=== PATIENT | female | born 1960 | race Caucasian/White ===

== ENCOUNTER 2017-06-12 11:59 | Observation (INO) | payer BC, OTHER ==
[2017-06-12] MEDS ORDERED: SODIUM CHLORIDE 0.9% 1,000 ML IV STA (12:04)
[2017-06-12 12:47] LABS: Basophils % (A) 0 %; CH 30.9; CHCM 34.5; Eosinophils % (A) 0 %; HCT 34.1 % (34.0-46.0); HDW 2.98; HGB 11.5 gm/dL (11.4-16.0); Luc # (Auto) 0.05; Luc % (Auto) 1; Lymphocytes # (A) 0.7 k/uL (1.0-4.8); Lymphocytes % (A) 8 %; MCH 30.4 pg (25.0-35.0); MCHC 33.8 g/dL (31.0-37.0); Monocytes # (A) 0.2 k/uL (0-1.0); Monocytes % (A) 2 %; Neutrophils # (A) 8.3 k/uL (1.3-7.7); Neutrophils % (A) 89 %; RBC 3.79 m/uL (3.80-5.40); RDW 12.8 % (11.5-15.5); WBC 9.3 k/uL (3.8-10.6); WBC (Perox) 9.29
[2017-06-12 12:54] LABS: ALT 34 U/L (9-52); AST 28 U/L (14-36); Alkaline Phosphatase 51 U/L (38-126); Anion Gap 6 mmol/L; Blood Urea Nitrogen 14 mg/dL (7-17); Carbon Dioxide 30 mmol/L (22-30); Chloride 101 mmol/L (98-107); Glucose 127 mg/dL (74-99); Magnesium 1.7 mg/dL (1.6-2.3); Non-African American GFR(MDRD) >60 (>60 ml/min/1.73 sqM); Potassium 4.1 mmol/L (3.5-5.1); Sodium 137 mmol/L (137-145); Total Bilirubin 0.2 mg/dL (0.2-1.3); Total Protein 6.1 g/dL (6.3-8.2)
--- NOTE | 2017-06-12 12:57 | XR ---
EXAMINATION TYPE: XR chest 2V DATE OF EXAM: 06/12/2017 COMPARISON: NONE HISTORY: Shortness of breath TECHNIQUE: Frontal and lateral views of the chest are obtained. FINDINGS: Scattered senescent parenchymal changes noted. Hyperinflation compatible with COPD. No evidence for infiltrate. No evidence for atelectasis. Heart size is stable. Mediastinal structures are stable and grossly unremarkable. No evidence for hilar prominence. Degenerative changes dorsal spine. IMPRESSION: 1. No evidence for acute pulmonary disease.
[2017-06-12 13:02] LABS: INR 1.1 (<1.2); Prothrombin Time 11.3 sec (9.0-12.0)
[2017-06-12 13:08] LABS: Creatine Kinase 141 U/L (30-135)
[2017-06-12] MEDS ORDERED: RX INFO: IV CONTRAST WAS GIVEN 1 EACH MISC MISCELLANE PRN (13:10)
[2017-06-12 13:20] LABS: Troponin I <0.012 ng/mL (0.000-0.034)
[2017-06-12 13:24] LABS: Creatine Kinase MB 3.1 ng/mL (0.0-2.4)
--- NOTE | 2017-06-12 13:53 | CT ---
EXAMINATION TYPE: CT angio chest DATE OF EXAM: 06/12/2017 COMPARISON: NONE HISTORY: A Fib CT DLP: 501.9 mGycm CONTRAST: CT chest with contrast and 3D reconstruction with MIP imaging is performed with IV Contrast, patient injected with 100 mL of Omnipaque 350. Contrast-enhanced CT of the chest was performed through the course of the pulmonary arteries with vic g and mediastinal window settings submitted. 3D reconstruction with MIP imaging was also performed. PULMONARY ARTERIES: The pulmonary arteries and their major tributaries are patent. I do not see jayda dence for sizable filling defect to suggest pulmonary embolic process. LUNGS: The lungs are clear and free of infiltrate. No evidence for atelectasis. No pulmonary nodule or mass is detected. No pleural effusion. MEDIASTINUM: Thoracic aorta is of normal caliber . The heart is not enlarged. No evidence for media stinal mass. No mediastinal lymph nodes greater than 1cm. HILAR STRUCTURES: No evidence for mass. No hilar lymph nodes greater than 1 cm. UPPER ABDOMEN: No significant abnormality is seen. IMPRESSION: 1. No evidence for Pulmonary embolism at this time.
[2017-06-12] MEDS ORDERED: METOPROLOL TARTRATE 25 MG TAB PO STA (13:54)
[2017-06-12] MEDS ORDERED: ACETAMINOPHEN TAB 325 MG TAB PO PRN (14:39)
[2017-06-12] MEDS ORDERED: MORPHINE SULFATE 4 MG/ML SYRINGE IV PRN (14:39)
[2017-06-12] MEDS ORDERED: NALOXONE 0.4 MG/ML 1 ML VIAL IV PRN (14:39)
[2017-06-12] MEDS: MORPHINE SULFATE 4 MG/ML SYRINGE IVP STA ×2 (14:45→14:51)
[2017-06-12] MEDS ORDERED: HYDROmorphone 1 MG/ML 1 ML SYRINGE IVP STA (14:50)
--- NOTE | 2017-06-12 14:51 | ED ---
General Adult HPI - General Chief complaint: Arrhythmia/Palpitations Stated complaint: AFib Time Seen by Provider: 06/12/17 12:04 Source: patient, family, EMS, RN notes reviewed Mode of arrival: EMS Limitations: no limitations - History of Present Illness Initial comments: 57 female presents from same day surgery clinic with new-onset atrial fibrillation. Patient does have past history of hypertension, COPD, and hypothyroidism. She was noted to be in sinus rhythm prior to her procedure. Throughout the procedure and postoperatively she did have atrial fibrillation with a rapid ventricular response at a rate of around 130. This was discussed with the anesthesiologist. Patient denied chest pain or shortness of breath. No history CVA, no history of peripheral vascular disease or diabetes. Patient denies any complaints at this time. - Related Data Home Medications Medication Instructions Recorded Confirmed Hydrochlorothiazide 25 mg PO DAILY 06/12/17 06/12/17 Levothyroxine Sodium [Synthroid] 100 mcg PO DAILY 06/12/17 06/12/17 Lisinopril [Zestril] 10 mg PO DAILY 06/12/17 06/12/17 Omeprazole 20 mg PO BID 06/12/17 06/12/17 Sertraline [Zoloft] 100 mg PO DAILY 06/12/17 06/12/17 buPROPion HCL [Wellbutrin XL] 300 mg PO DAILY 06/12/17 06/12/17 Allergies Allergy/AdvReac Type Severity Reaction Status Date / Time No Known Allergies Allergy Verified 06/12/17 12:19 Review of Systems ROS Statement: Those systems with pertinent positive or pertinent negative responses have been documented in the HPI. ROS Other: All systems not noted in ROS Statement are negative. Past Medical History Past Medical History: Hypertension History of Any Multi-Drug Resistant Organisms: None Reported Past Surgical History: Appendectomy, Bladder Surgery, Cholecystectomy, Tubal Ligation, Uterine Ablation Past Psychological History: Depression Smoking Status: Current some day smoker Past Alcohol Use History: Rare Past Drug Use History: None Reported General Exam Limitations: no limitations General appearance: alert, in no apparent distress Head exam: Present: atraumatic, normocephalic Eye exam: Present: normal appearance, PERRL ENT exam: Present: normal exam, mucous membranes dry Neck exam: Present: normal inspection. Absent: tenderness, meningismus Respiratory exam: Present: normal lung sounds bilaterally. Absent: respiratory distress Cardiovascular Exam: Present: tachycardia, irregular rhythm GI/Abdominal exam: Present: soft. Absent: distended, tenderness Extremities exam: Present: normal inspection, normal capillary refill. Absent: pedal edema Neurological exam: Present: alert, oriented X3, CN II-XII intact. Absent: motor sensory deficit Psychiatric exam: Present: normal affect, normal mood Skin exam: Present: warm, dry. Absent: cyanosis, diaphoretic Course Vital Signs 06/12/17 06/12/17 12:03 12:40 Temperature 97.4 F L Pulse Rate 102 H Pulse Rate [ 110 H Left Pulse Oximetery] Respiratory 18 Rate Blood Pressure 124/71 O2 Sat by Pulse 94 L Oximetry EKG Findings - EKG Comments: EKG Findings:: EKG shows atrial fibrillation with rapid ventricular response, ventricular rate of 103, QRS duration 88, QTC 440, there is no ST segment elevation or depression. Medical Decision Making - Medical Decision Making 57 yo female presenting with new onset atrial fibrillation. Patient has no complaints, evaluation. She is dehydrated likely secondary to decreased by mouth intake prior to her outpatient surgery. EKG shows atrial fibrillation with RVR, ventricular rate of 101, no ST segment elevation or depression. She denies chest pain. Laboratory studies reveal normal electrolytes, potassium 4.1 , magnesium 1.7, cardiac enzymes are initially negative. D-dimer is positive in the setting of elevated heart rate, CT angiography is obtained which is negative for pulmonary embolism. Chest x-ray shows no acute process. Patient is given metoprolol by mouth and started on metoprolol 25 mg twice a day. Case is discussed with cardiology on-call. They do agree with this plan. Patient will be admitted for further evaluation and treatment. [id number] is 2, for female and history of hypertension. Patient did just have recent operation with sling placement. Will hold on anticoagulation at this time. Diagnosis: New-onset atrial fibrillation, with rapid ventricular response. - Lab Data Result diagrams: 06/12/17 12:30 06/12/17 12:30 Lab Results 06/12/17 06/12/17 06/12/17 Range/Units 12:30 12:30 12:30 WBC 9.3 (3.8-10.6) k/uL RBC 3.79 L (3.80-5.40) m/uL Hgb 11.5 (11.4-16.0) gm/dL Hct 34.1 (34.0-46.0) % MCV 90.0 (80.0-100.0) fL MCH 30.4 (25.0-35.0) pg MCHC 33.8 (31.0-37.0) g/dL RDW 12.8 (11.5-15.5) % Plt Count 210 (150-450) k/uL Neutrophils % 89 % Lymphocytes % 8 % Monocytes % 2 % Eosinophils % 0 % Basophils % 0 % Neutrophils # 8.3 H (1.3-7.7) k/uL Lymphocytes # 0.7 L (1.0-4.8) k/uL Monocytes # 0.2 (0-1.0) k/uL Eosinophils # 0.0 (0-0.7) k/uL Basophils # 0.0 (0-0.2) k/uL PT (9.0-12.0) sec INR (<1.2) APTT (22.0-30.0) sec D-Dimer (<0.60) mg/L FEU Sodium 137 (137-145) mmol/L Potassium 4.1 (3.5-5.1) mmol/L Chloride 101 (98-107) mmol/L Carbon Dioxide 30 (22-30) mmol/L Anion Gap 6 mmol/L BUN 14 (7-17) mg/dL Creatinine 0.62 (0.52-1.04) mg/dL Est GFR (MDRD) Af Amer >60 (>60 ml/min/1.73 sqM) Est GFR (MDRD) Non-Af >60 (>60 ml/min/1.73 sqM) Glucose 127 H (74-99) mg/dL Calcium 8.0 L (8.4-10.2) mg/dL Magnesium 1.7 (1.6-2.3) mg/dL Total Bilirubin 0.2 (0.2-1.3) mg/dL AST 28 (14-36) U/L ALT 34 (9-52) U/L Alkaline Phosphatase 51 (38-126) U/L Total Creatine Kinase 141 H (30-135) U/L CK-MB (CK-2) 3.1 H* (0.0-2.4) ng/mL CK-MB (CK-2) Rel Index 2.2 Troponin I <0.012 (0.000-0.034) ng/mL Total Protein 6.1 L (6.3-8.2) g/dL Albumin 3.5 (3.5-5.0) g/dL 06/12/17 Range/Units 12:30 WBC (3.8-10.6) k/uL RBC (3.80-5.40) m/uL Hgb (11.4-16.0) gm/dL Hct (34.0-46.0) % MCV (80.0-100.0) fL MCH (25.0-35.0) pg MCHC (31.0-37.0) g/dL RDW (11.5-15.5) % Plt Count (150-450) k/uL Neutrophils % % Lymphocytes % % Monocytes % % Eosinophils % % Basophils % % Neutrophils # (1.3-7.7) k/uL Lymphocytes # (1.0-4.8) k/uL Monocytes # (0-1.0) k/uL Eosinophils # (0-0.7) k/uL Basophils # (0-0.2) k/uL PT 11.3 (9.0-12.0) sec INR 1.1 (<1.2) APTT 22.0 (22.0-30.0) sec D-Dimer 2.59 H (<0.60) mg/L FEU Sodium (137-145) mmol/L Potassium (3.5-5.1) mmol/L Chloride (98-107) mmol/L Carbon Dioxide (22-30) mmol/L Anion Gap mmol/L BUN (7-17) mg/dL Creatinine (0.52-1.04) mg/dL Est GFR (MDRD) Af Amer (>60 ml/min/1.73 sqM) Est GFR (MDRD) Non-Af (>60 ml/min/1.73 sqM) Glucose (74-99) mg/dL Calcium (8.4-10.2) mg/dL Magnesium (1.6-2.3) mg/dL Total Bilirubin (0.2-1.3) mg/dL AST (14-36) U/L ALT (9-52) U/L Alkaline Phosphatase (38-126) U/L Total Creatine Kinase (30-135) U/L CK-MB (CK-2) (0.0-2.4) ng/mL CK-MB (CK-2) Rel Index Troponin I (0.000-0.034) ng/mL Total Protein (6.3-8.2) g/dL Albumin (3.5-5.0) g/dL Disposition Clinical Impression: Atrial fibrillation, Tachycardia Disposition: ADMITTED IP TO THIS [facility] Condition: Stable Referrals: Nonstaff,Physician [Primary Care Provider] - 1-2 days Decision to Admit Reason: Admit from EC Decision Date: 06/12/17 Decision Time: 14:05
[2017-06-12] MEDS: SODIUM CHLORIDE 0.9% 1,000 ML IV SCH (14:59)
[2017-06-12 17:04] VITALS: BMI 34.9
[2017-06-12 18:58] LABS: Creatine Kinase 182 U/L (30-135)
[2017-06-12 19:12] LABS: Troponin I <0.012 ng/mL (0.000-0.034)
[2017-06-12 19:20] LABS: Creatine Kinase MB 3.2 ng/mL (0.0-2.4)
--- NOTE | 2017-06-12 20:04 | P.HPIM ---
History of Present Illness H&P Date: 06/12/17 Chief Complaint: new onset Afib 57-year-old female with past medical history of hypertension, hepatitis C status post treatment, history of bronchitis, hypothyroidism, and depression. Patient was in same day surgery having urological procedure with urethral sling. She was noticed prior to surgery to have normal sinus rhythm however is documented that during and after surgery she was persistently in A. fib at times with rapid ventricular response. Patient denies any symptoms of chest pain trouble breathing dizziness lightheadedness palpitations. Reports that she had full evaluation back in November and was told that everything is okay. She denies any history of heart attack or heart failure or any stroke, denies any history of peripheral vascular disease or diabetes. She is currently eager to go home and feels upset about staying in the hospital. Patient was sent to the emergency department from same day surgery for further evaluation d-dimer was found to be positive and CT angiogram chest was performed which was negative for acute pulmonary embolism. Cardiac enzymes are unremarkable patient was admitted for further evaluation by cardiology. Patient's reports history of hypothyroidism which is controlled with levothyroxine however she does mention that her mom has been recently diagnosed with A. fib 5 years ago. Otherwise he only complains of lower abdominal pressure and reported that her urologist told her that's expected postsurgery and she is requesting Dilaudid is helping with her pain. Review of Systems Constitutional: Patient reports no fever, no chills, no night sweating, no significant weight changes Eyes: Patient reports no visual changes, no eye pain ENT: Patient reports no ear pain, no rhinorrhea, no sore throat Cardiovascular: Patient reports no chest pain, no exertional dyspnea, no peripheral leg edema, no orthopnea, no paroxysmal nocturnal dyspnea, no palpitations Respiratory:Patient reports no cough, no wheezing, no shortness of breath Gastrointestinal: Patient reports no diarrhea, no constipation, no nausea no vomiting, no abdominal pain Genitourinary: Patient reports no dysuria, no hematuria, no genital lesions. reports urinary stress incontinence Musculoskeletal: Patient reports no muscle pain, no joint pain Psychiatric: Patient reports no changes in mood or memory, no suicidal ideation , no anxiety Endocrine: Patient reports no heat intolerance, no cold intolerance, no excessive thirst, no polyuria Neurological: Patient reports no focal neurologic deficits, no weakness, no numbness, no tingling Hem/Lymphatic: Patient reports no bleeding tendency, no bruising, no swollen lymph glands Allergic/Immun: Patient reports no recent allergic reactions Skin: Patient reports no rashes, no pruritis, no ulcers Past Medical History Past Medical History: Hypertension, Thyroid Disorder Additional Past Medical History / Comment(s): Hep C s/p treatment , chronic bronchitis History of Any Multi-Drug Resistant Organisms: None Reported Past Surgical History: Appendectomy, Bladder Surgery, Cholecystectomy, Tubal Ligation, Uterine Ablation Past Psychological History: Depression Smoking Status: Former smoker Past Alcohol Use History: Rare Past Drug Use History: None Reported - Past Family History Mother Family Medical History: AFIB, Cancer, Thyroid Disorder Father Family Medical History: Coronary Artery Disease (CAD) (premature CAD at age of 52 massive heart attack) Medications and Allergies Home Medications and Allergies Comment(s): home meds reviewed Home Medications Medication Instructions Recorded Confirmed Type Hydrochlorothiazide 25 mg PO DAILY 06/12/17 06/12/17 History Levothyroxine Sodium [Synthroid] 100 mcg PO DAILY 06/12/17 06/12/17 History Lisinopril [Zestril] 10 mg PO DAILY 06/12/17 06/12/17 History Omeprazole 20 mg PO BID 06/12/17 06/12/17 History Sertraline [Zoloft] 100 mg PO DAILY 06/12/17 06/12/17 History buPROPion HCL [Wellbutrin XL] 300 mg PO DAILY 06/12/17 06/12/17 History Allergies Allergy/AdvReac Type Severity Reaction Status Date / Time No Known Allergies Allergy Verified 06/12/17 12:19 Physical Exam Vitals: Vital Signs Temp Pulse Pulse Resp BP BP Pulse Ox 06/12/17 15:16 96.7 F L 107 H 18 125/71 97 06/12/17 12:40 110 H 06/12/17 12:03 97.4 F L 102 H 18 124/71 94 L Intake and Output 06/12/17 06/12/17 06/12/17 06:59 14:59 22:59 Other: Weight 104.326 kg 104.326 kg Patient Weight 06/13/17 06:59 Weight 104.326 kg Constitutional: Not in acute distress, pleasant, conversant, vital signs stable Eyes: Pupils equal round reactive to light , anicteric sclerae, moist conjunctivae ENMT: Normocephalic, atraumatic, oropharynx clear, no erythema/exudate Neck: Supple, FORM, no palpable thyromegally Lymphatics: no palpable cervical or supraclavicular lymph nodes, no palpable inguinal lymph nodes Respiratory: Clear to auscultation bilaterally, no wheezes, no crackles, no rhonchi, clear to percussion, normal respiratory effort without use of accessory muscles Cardiovascular: irregular rate and rhythm, no murmurs, no gallops, no rubs, no peripheral edema , no JVD, no carotid bruits, peripheral pulses palpable and equal over bilateral radial arteries and dorsalis pedis arteries Abdomen: Bowel sounds positive, soft, no tenderness to palpation, no palpable masses, no palpable hepatosplenomegally, no abdominal wall hernias Skin: Unremarkable temperature, tone, texture, and turgor, no induration or subcutaneous nodule, no rashes, no lesions, no ulcers Extremities: No digital cyanosis, ischemia or clubbing, no calf muscle tenderness bilaterally, full active range of motion in both upper and lower extremities Psych: Alert, oriented to place, person and date, recent and remote memory intact, appropriate mood and affect, intact judgment Neurologic: Cranial nerves II-XII grossly intact, no focal sensory deficits to touch, Deep tendon reflexes unremarkable over bilateral knees Results Results: labs reviewed EKG reviewed CTA of the chest report reviewed CBC & Chem 7: 06/12/17 12:30 06/12/17 12:30 Labs: Abnormal Lab Results - Last 24 Hours (Table) 06/12/17 06/12/17 06/12/17 Range/Units 12:30 12:30 12:30 RBC 3.79 L (3.80-5.40) m/uL Neutrophils # 8.3 H (1.3-7.7) k/uL Lymphocytes # 0.7 L (1.0-4.8) k/uL D-Dimer (<0.60) mg/L FEU Glucose 127 H (74-99) mg/dL Calcium 8.0 L (8.4-10.2) mg/dL Total Creatine Kinase 141 H (30-135) U/L CK-MB (CK-2) 3.1 H* (0.0-2.4) ng/mL Total Protein 6.1 L (6.3-8.2) g/dL TSH (0.465-4.680) mIU/L 06/12/17 06/12/17 06/12/17 Range/Units 12:30 12:30 18:24 RBC (3.80-5.40) m/uL Neutrophils # (1.3-7.7) k/uL Lymphocytes # (1.0-4.8) k/uL D-Dimer 2.59 H (<0.60) mg/L FEU Glucose (74-99) mg/dL Calcium (8.4-10.2) mg/dL Total Creatine Kinase 182 H (30-135) U/L CK-MB (CK-2) 3.2 H* (0.0-2.4) ng/mL Total Protein (6.3-8.2) g/dL TSH 0.250 L (0.465-4.680) mIU/L Thrombosis Risk Factor Assmnt - DVT/VTE Prophylaxis DVT/VTE Prophylaxis: Mechanical Prophylaxis ordered (patient had urologic surgery today ) Assessment and Plan (1) New onset atrial fibrillation Narrative/Plan: CHADSVASC 2score of 2 (hypertension and female sex) anticoagulation not initiated due to post op status <24 hours for urologic procedure 2 D echo of the heart pending cardiology consulted started on metoprolol cardiac monitoring monitor electrolytes Status: Acute (2) Hypertension Narrative/Plan: controlled lisinopril Status: Chronic (3) DVT prophylaxis Narrative/Plan: SCDs due to urologic surgical intervention today Status: Acute (4) Hypothyroidism Narrative/Plan: on levothyroxin Status: Acute (5) Obesity (BMI 30-39.9) Narrative/Plan: counseled regarding weight loss and life style modification Status: Chronic (6) Depression Narrative/Plan: continue home meds Status: Chronic Plan: full code status Time with Patient: Greater than 30
[2017-06-12] MEDS: METOPROLOL TARTRATE 25 MG TAB PO SCH (21:14)
[2017-06-12] MEDS: HYDROmorphone 1 MG/ML 1 ML SYRINGE IVP PRN (22:34)
[2017-06-13] MEDS: TEMAZEPAM 15 MG CAP PO SCH ×2 (00:22→23:05)
[2017-06-13 01:33] LABS: Creatine Kinase 232 U/L (30-135)
[2017-06-13 01:46] LABS: Troponin I <0.012 ng/mL (0.000-0.034)
[2017-06-13 01:59] LABS: Creatine Kinase MB 3.5 ng/mL (0.0-2.4)
[2017-06-13] MEDS: LISINOPRIL 10 MG TAB PO SCH (08:25)
[2017-06-13] MEDS: buPROPion XL 300 MG TAB.ER.24H PO SCH (08:25)
[2017-06-13] MEDS: HYDROmorphone 1 MG/ML 1 ML SYRINGE IVP PRN ×3 (08:25→20:58)
[2017-06-13] MEDS: METOPROLOL TARTRATE 25 MG TAB PO SCH (08:25)
[2017-06-13] MEDS: SERTRALINE 100 MG TAB PO SCH (08:25)
[2017-06-13] MEDS: LEVOTHYROXINE 100 MCG TAB PO SCH (08:25)
[2017-06-13] MEDS: ONDANSETRON 4 MG/2 ML VIAL IVP PRN (08:41)
[2017-06-13] MEDS ORDERED: HYDROCHLOROTHIAZIDE 25 MG TAB PO SCH (09:00)
--- NOTE | 2017-06-13 11:26 | P.CRDCN ---
History of Present Illness History of present illness: 57-year-old female who developed atrial fibrillation after her urethral surgery and was admitted to the hospital. She states she had no symptoms from atrial fibrillation. She denies chest discomfort dizziness lightheadedness shortness of breath. After taking a shower this morning she was a bit dizzy. Twelve- lead ECG from 12 of June at 12 known shows atrial fibrillation with a heart rate of 101 beats a minute .Review of systems: No fever chills or rigors, no cough, phlegm or expectoration , no nausea, vomiting or diarrhea, no hematuria, dysuria, no musculoskeletal complaints, no strokes or seizures, no skin lesions. NO KNOWN DRUG ALLERGIES Home medications reviewed and include Wellbutrin and Zoloft hydrochlorothiazide lisinopril and Synthroid Labs reviewed. Hemoglobin 11.5 at lites normal kidney function normal, normal troponins TSH suppressed at 0.25 2-D echo report reviewed and shows normal LV function Past history of hypertension on medications, hypothyroidism on Synthroid with a TSH of 0.25 which is low History of hepatitis C On examination heart sounds are normal but irregular no murmurs no gallops, breath sounds are normal no rhonchi no crackles, abdomen soft nontender, extremities warm no edema, no JVD no thyromegaly or bruits Afebrile 97.5, heart rates between 89 and 113 beats a minute irregular, blood pressure 114/69 mmHg Impression First diagnosis of atrial fibrillation with mild increase in heart rate and minimal symptoms GRACY VASC or is at least 2, female gender hypertension but she is post-urethral surgery and the surgeon wants to hold off on any anticoagulation for now Hypertension, well controlled Suppressed TSH on levothyroxine, 100 g daily Patient taking Wellbutrin and Zoloft Suggest Reduce the dose of levothyroxine Stop hydrochlorothiazide Start diltiazem 30 mg twice daily by mouth short-acting Ambulate in the hallways If her heart rates up and walking are less than 120 beats a minute she can go home and follow-up with an vascular technologist sonographer in the [facility] Past Medical History Past Medical History: Hypertension, Thyroid Disorder Additional Past Medical History / Comment(s): Hep C s/p treatment , chronic bronchitis History of Any Multi-Drug Resistant Organisms: None Reported Past Surgical History: Appendectomy, Bladder Surgery, Cholecystectomy, Tubal Ligation, Uterine Ablation Past Psychological History: Depression Smoking Status: Former smoker Past Alcohol Use History: Rare Past Drug Use History: None Reported - Past Family History Mother Family Medical History: AFIB, Cancer, Thyroid Disorder Father Family Medical History: Coronary Artery Disease (CAD) (premature CAD at age of 52 massive heart attack) Medications and Allergies Home Medications Medication Instructions Recorded Confirmed Type Hydrochlorothiazide 25 mg PO DAILY 06/12/17 06/12/17 History Levothyroxine Sodium [Synthroid] 100 mcg PO DAILY 06/12/17 06/12/17 History Lisinopril [Zestril] 10 mg PO DAILY 06/12/17 06/12/17 History Omeprazole 20 mg PO BID 06/12/17 06/12/17 History Sertraline [Zoloft] 100 mg PO DAILY 06/12/17 06/12/17 History buPROPion HCL [Wellbutrin XL] 300 mg PO DAILY 06/12/17 06/12/17 History Allergies Allergy/AdvReac Type Severity Reaction Status Date / Time No Known Allergies Allergy Verified 06/12/17 12:19 Physical Exam Vitals: Vital Signs Temp Pulse Pulse Resp BP BP Pulse Ox 06/13/17 08:00 97.5 F L 95 114/69 98 06/13/17 04:00 97.5 F L 89 18 120/70 92 L 06/13/17 00:00 96.8 F L 113 H 20 123/91 98 06/12/17 20:00 96.9 F L 127 H 20 110/74 98 06/12/17 15:16 96.7 F L 107 H 18 125/71 97 06/12/17 12:40 110 H 06/12/17 12:03 97.4 F L 102 H 18 124/71 94 L Intake and Output 06/12/17 06/13/17 06/13/17 22:59 06:59 14:59 Intake Total 400 Output Total 850 500 Balance -850 -100 Intake: Intake, IV Titration 40 Amount Sodium Chloride 0.9% 1, 40 000 ml @ 20 mls/hr IV . Q24H [facility] Rx#:[id number] Oral 360 Output: Urine 850 500 Uretheral (Anton) 100 Other: Voiding Method Indwelling Catheter Indwelling Catheter Weight 104.326 kg 109.2 kg Results 06/12/17 12:30 06/12/17 12:30 Cardiac Enzymes 06/12/17 06/12/17 06/12/17 Range/Units 12:30 12:30 18:24 AST 28 (14-36) U/L CK-MB (CK-2) 3.1 H* 3.2 H* (0.0-2.4) ng/mL Troponin I <0.012 <0.012 (0.000-0.034) ng/mL 06/13/17 Range/Units 00:33 AST (14-36) U/L CK-MB (CK-2) 3.5 H* (0.0-2.4) ng/mL Troponin I <0.012 (0.000-0.034) ng/mL Coagulation 06/12/17 Range/Units 12:30 PT 11.3 (9.0-12.0) sec APTT 22.0 (22.0-30.0) sec CBC 06/12/17 Range/Units 12:30 WBC 9.3 (3.8-10.6) k/uL RBC 3.79 L (3.80-5.40) m/uL Hgb 11.5 (11.4-16.0) gm/dL Hct 34.1 (34.0-46.0) % Plt Count 210 (150-450) k/uL Comprehensive Metabolic Panel 06/12/17 Range/Units 12:30 Sodium 137 (137-145) mmol/L Potassium 4.1 (3.5-5.1) mmol/L Chloride 101 (98-107) mmol/L Carbon Dioxide 30 (22-30) mmol/L BUN 14 (7-17) mg/dL Creatinine 0.62 (0.52-1.04) mg/dL Glucose 127 H (74-99) mg/dL Calcium 8.0 L (8.4-10.2) mg/dL AST 28 (14-36) U/L ALT 34 (9-52) U/L Alkaline Phosphatase 51 (38-126) U/L Total Protein 6.1 L (6.3-8.2) g/dL Albumin 3.5 (3.5-5.0) g/dL Current Medications Generic Name Dose Route Start Last Admin Trade Name Freq PRN Reason Stop Dose Admin Bupropion HCl 300 mg 06/13/17 09:00 06/13/17 08:25 Wellbutrin Xl PO 300 mg DAILY CHRISTINA Administration Hydrochlorothiazide 25 mg 06/13/17 09:00 06/13/17 08:25 Hydrodiuril PO 25 mg DAILY CHRISTINA Administration Hydromorphone HCl 0.5 mg 06/12/17 18:55 06/13/17 08:25 Dilaudid IVP 0.5 mg Q6HR PRN Administration Moderate Pain Sodium Chloride 1,000 mls @ 20 mls/hr 06/12/17 14:45 06/12/17 14:59 Saline 0.9% IV 20 mls/hr .Q24H CHRISTINA Administration Levothyroxine Sodium 100 mcg 06/13/17 06:30 06/13/17 08:25 Synthroid PO 100 mcg 0630 CHRISTINA Administration Lisinopril 10 mg 06/13/17 09:00 06/13/17 08:25 Zestril PO 10 mg DAILY CHRISTINA Administration Metoprolol Tartrate 25 mg 06/12/17 21:00 06/13/17 08:25 Lopressor PO 25 mg BID CHRISTINA Administration Miscellaneous Information 1 each 06/12/17 13:10 Rx Info: Iv Contrast Was Given MISCELLANE 06/14/17 13:10 DAILY PRN Per Protocol Naloxone HCl 0.2 mg 06/12/17 14:39 Narcan IV Q2M PRN Opioid Reversal Ondansetron HCl 4 mg 06/12/17 14:39 06/13/17 08:41 Zofran IVP 4 mg Q8HR PRN Administration Nausea And Vomiting Sertraline HCl 100 mg 06/13/17 09:00 06/13/17 08:25 Zoloft PO 100 mg DAILY CHRISTINA Administration Temazepam 15 mg 06/12/17 23:45 06/13/17 00:22 Restoril PO 15 mg HS CHRISTINA Administration Intake and Output 06/12/17 06/13/17 06/13/17 22:59 06:59 14:59 Intake Total 400 Output Total 850 500 Balance -850 -100 Intake: Intake, IV Titration 40 Amount Sodium Chloride 0.9% 1, 40 000 ml @ 20 mls/hr IV . Q24H [facility] Rx#:[id number] Oral 360 Output: Urine 850 500 Uretheral (Anton) 100 Other: Voiding Method Indwelling Catheter Indwelling Catheter Weight 104.326 kg 109.2 kg 06/12/17 12:30 06/12/17 12:30
[2017-06-13] MEDS: SODIUM CHLORIDE 0.9% 1,000 ML IV SCH (11:54)
[2017-06-13] MEDS ORDERED: ALPRAZolam 0.25 MG TAB PO STA (12:10)
--- NOTE | 2017-06-13 14:07 | ECHOF ---
Referral Reason:new afib MEASUREMENTS -------- HEIGHT: 172.7 cm WEIGHT: 108.9 kg BP: 120/70 IVSd: 1.7 cm (0.6 - 1.1) LVIDd: 3.0 cm (3.9 - 5.3) LVPWd: 1.7 cm (0.6 - 1.1) IVSs: 1.8 cm LVIDs: 2.1 cm LVPWs: 1.8 cm LAESV Index (A-L): 20.31 ml/m Ao Diam: 2.9 cm (2.0 - 3.7) AV Cusp: 1.6 cm (1.5 - 2.6) LA Diam: 3.8 cm (2.7 - 3.8) MV EXCURSION: 13.536 mm (> 18.000) MV EF SLOPE: 86 mm/s (70 - 150) EPSS: 0.8 cm RAP: 5.00 mmHg RVSP: 11.16 mmHg FINDINGS -------- Atrial fibrillation. This was a technically good study. There is moderate concentric left ventricular hypertrophy. Overall left ventricular systolic function is normal with, an EF between 55 - 60 %. The right ventricle is normal in size and function. The left atrium is normal in size. The right atrium is normal in size. The aortic valve is trileaflet, and appears structurally normal. No aortic stenosis or regurgitation. The mitral valve leaflets are mildly thickened. There is trace mitral regurgitation. Trace tricuspid regurgitation present. The right ventricular systolic pressure, as measured by Doppler, is 11.16mmHg. Pulmonic valve appears structurally normal. The aortic root size is normal. The pericardium is normal. CONCLUSIONS -------- 1. Atrial fibrillation. 2. There is trace mitral regurgitation. 3. Trace tricuspid regurgitation present. 4. The right ventricular systolic pressure, as measured by Doppler, is 11.16mmHg. 5. Pulmonic valve appears structurally normal. 6. The aortic root size is normal. 7. The pericardium is normal. 8. This was a technically good study. 9. There is moderate concentric left ventricular hypertrophy. 10. Overall left ventricular systolic function is normal with, an EF between 55 - 60 %. 11. The right ventricle is normal in size and function. 12. The left atrium is normal in size. 13. The right atrium is normal in size. 14. The aortic valve is trileaflet, and appears structurally normal. No aortic stenosis or regurgitation. 15. The mitral valve leaflets are mildly thickened. SOFTWARE APPLICATIONS ARCHITECT: Bhargavi Agudelo RDCS
--- NOTE | 2017-06-13 18:07 | P.PN ---
Subjective Principal diagnosis: Patient is seen and examined today in follow-up for atrial fibrillation new onset 57-year-old female with past medical history of hepatitis C status post treatment, hypertension controlled, history of bronchitis currently compensated , hypothyroidism stable. She presented from same day surgery through the ER after new onset atrial fibrillation that was noticed during the OR time and postop. Patient was in A. fib with RVR for which she went through ER to get CAT scan with angiogram for chest which showed no pulmonary embolism. Patient was later admitted to the hospital for further management and to be evaluated by cardiology. 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 Cardiac enzymes are negative. Patient denies any symptoms of chest pain or trouble breathing however when she is walking around in her heart rate goes up in the 120s she feels lightheaded and dizzy with uneasy feeling. Patient otherwise reports minimal bleeding with urination, Anton catheter was removed today. Discussion with the patient about anticoagulation with recommendations to be started on one once urology clears the patient. Objective - Vital Signs Vital signs: Vital Signs Temp 97.0 F L 06/13/17 16:00 Pulse 109 H 06/13/17 16:00 Resp 20 06/13/17 04:00 BP 111/88 06/13/17 16:00 Pulse Ox 99 06/13/17 16:00 Intake & Output 06/12/17 06/13/17 06/13/17 18:59 06:59 18:59 Intake Total 400 Output Total 850 500 Balance -850 -100 Weight 104.326 kg 109.2 kg Intake: Intake, IV Titration 40 Amount Sodium Chloride 0.9% 1, 40 000 ml @ 20 mls/hr IV . Q24H [facility] Rx#:[id number] Oral 360 Output: Urine 850 500 Uretheral (Anton) 100 Other: Voiding Method Indwelling Catheter Constitutional: vital signs stable, Not in acute distress, pleasant, conversant Lungs: Clear to auscultation bilaterally, clear to percussion, normal respiratory effort no use of accessory muscles Cardiovascular: irregular rate and rhythm, no murmurs, no gallops, no rubs, no peripheral edema Gastrointestinal: Soft, no tenderness to palpation, no palpable hepatosplenomegally, bowel sounds positive, no abdominal wall hernias Extremities: No digital cyanosis , ischemia or clubbing, no calf muscle tenderness Psych: Alert, oriented to place, person and time commercial real estate broker reviewed Labs reviewed - Labs CBC & Chem 7: 06/12/17 12:30 06/12/17 12:30 Labs: Abnormal Lab Results - Last 24 Hours (Table) 06/12/17 06/13/17 Range/Units 18:24 00:33 Total Creatine Kinase 182 H 232 H (30-135) U/L CK-MB (CK-2) 3.2 H* 3.5 H* (0.0-2.4) ng/mL Assessment and Plan (1) New onset atrial fibrillation Narrative/Plan: CHADSVASC 2score of 2 (hypertension and female sex) anticoagulation not initiated due to post op status for urologic procedure 2 D echocardiogram unremarkable for valvular abnormalities cardiology input noted, recommendations for anticoagulation once cleared by urology Increased dose of metoprolol today due to rapid ventricular response with activity cardiac monitoring monitor electrolytes Status: Acute (2) Hypertension Narrative/Plan: controlled lisinopril Status: Chronic (3) DVT prophylaxis Narrative/Plan: SCDs due to slight urethral bleeding post urologic intervention Status: Acute (4) Hypothyroidism Narrative/Plan: on levothyroxin free T4 unremarkable Status: Acute (5) Obesity (BMI 30-39.9) Narrative/Plan: counseled regarding weight loss and life style modification Status: Chronic (6) Depression Narrative/Plan: continue home meds Status: Chronic Plan: Patient is having some anxiety today will be started on Xanax when necessary Patient was still having bouts of rapid ventricular response when she is active , for that metoprolol dose will be increased Case discussed with cardiology and agrees with above recommendations Continue to monitor patient for another 24 hours and patient in order to get better heart rate control I anticipate discharge tomorrow morning if heart rate is controlled full code status
[2017-06-13] MEDS: METOPROLOL TARTRATE 50 MG TAB PO SCH (20:49)
[2017-06-13] MEDS: CEPHALEXIN 500 MG CAP PO SCH (20:49)
[2017-06-13] MEDS: ALPRAZolam 0.25 MG TAB PO PRN (23:05)
[2017-06-14] MEDS: HYDROmorphone 1 MG/ML 1 ML SYRINGE IVP PRN ×3 (05:07→17:15)
[2017-06-14] MEDS: LEVOTHYROXINE 100 MCG TAB PO SCH (06:56)
[2017-06-14 08:17] LABS: Basophils # (A) 0.1 k/uL (0-0.2); Basophils % (A) 1 %; CH 31.2; CHCM 33.4; Eosinophils # (A) 0.1 k/uL (0-0.7); Eosinophils % (A) 1 %; HCT 34.4 % (34.0-46.0); HDW 2.92; Luc # (Auto) 0.16; Luc % (Auto) 2; Lymphocytes # (A) 4.7 k/uL (1.0-4.8); Lymphocytes % (A) 46 %; MCH 29.9 pg (25.0-35.0); MCHC 31.8 g/dL (31.0-37.0); MCV 93.9 fL (80.0-100.0); Mean Platelet Volume 7.5; Monocytes # (A) 0.4 k/uL (0-1.0); Monocytes % (A) 4 %; Neutrophils # (A) 4.7 k/uL (1.3-7.7); Neutrophils % (A) 46 %; RBC 3.67 m/uL (3.80-5.40); RDW 13.6 % (11.5-15.5); WBC 10.2 k/uL (3.8-10.6); WBC (Perox) 10.34
[2017-06-14] MEDS: SERTRALINE 100 MG TAB PO SCH (08:29)
[2017-06-14] MEDS: METOPROLOL TARTRATE 50 MG TAB PO SCH ×3 (08:29→21:42)
[2017-06-14] MEDS: CEPHALEXIN 500 MG CAP PO SCH ×3 (08:29→21:40)
[2017-06-14] MEDS: LISINOPRIL 10 MG TAB PO SCH (08:29)
[2017-06-14] MEDS: buPROPion XL 300 MG TAB.ER.24H PO SCH (08:29)
[2017-06-14] MEDS: ALPRAZolam 0.25 MG TAB PO PRN ×3 (08:34→22:46)
[2017-06-14] MEDS: ONDANSETRON 4 MG/2 ML VIAL IVP PRN ×2 (10:46→21:42)
--- NOTE | 2017-06-14 11:13 | P.PN ---
Subjective Patient was doing well yesterday and then subsequently started having symptoms. Discharge was withheld and beta blockers were increased. She now has palpitations and shortness of breath she is walking around in the hallways looks very anxious today be increasing the dose of metoprolol to 50mg twice daily. She denies any chest discomfort no lightheadedness she's afebrile 97.3F. Pulse rate when she walks is 1500-120 beats a minute at rest it is the 80s and 90s. Respirations are normal. Not pressure 121/89 mmHg Impression 57-year-old female with perioperative/postoperative atrial fibrillation. This is a new diagnosis A. fib with RVR Hypertension Hyperthyroidism on replacement therapy Lab Rate control. As long as her heart rate is less than 1:30 beats a minute with walking this will be considered adequate rate control and the dose of beta blockers and just been increased. Antegradely she was on hold per the request of the surgeon since he just had urethral surgery. The [facility] orders 1. She will need anticoagulation only if she is cardioverted in the future for persistent atrial fibrillation Hopefully she converts spontaneously Cardiac standpoint if her heart rates are well controlled with heart rates less than 100 beats a minute at rest and less than 120 bpm with walking and her vitals are stable she may go home and follow-up with an porcelain slusher in the [facility] Objective - Vital Signs Vital signs: Vital Signs Temp 97.3 F L 06/14/17 08:00 Pulse 87 06/14/17 08:00 Resp 20 06/14/17 04:00 BP 96/53 06/14/17 08:00 Pulse Ox 96 06/14/17 08:00 Intake & Output 06/13/17 06/14/17 06/14/17 18:59 06:59 18:59 Intake Total 640 200 Output Total 1300 1400 Balance -660 -1400 200 Weight 110.3 kg Intake: Intake, IV Titration 40 0 Amount Sodium Chloride 0.9% 1, 40 0 000 ml @ 20 mls/hr IV . Q24H [facility] Rx#:[id number] Oral 600 200 Output: Urine 1300 1400 Uretheral (Anton) 100 Other: Voiding Method Toilet # Voids 2 - Labs CBC & Chem 7: 06/14/17 07:48 06/12/17 12:30 Labs: Abnormal Lab Results - Last 24 Hours (Table) 06/14/17 Range/Units 07:48 RBC 3.67 L (3.80-5.40) m/uL Hgb 11.0 L (11.4-16.0) gm/dL
[2017-06-14] MEDS: SODIUM CHLORIDE 0.9% 1,000 ML IV SCH (17:15)
--- NOTE | 2017-06-14 18:01 | P.PN ---
Subjective Principal diagnosis: Patient is seen and examined today in follow-up for atrial fibrillation new onset with rapid ventricular response 57-year-old female with past medical history of hepatitis C status post treatment, hypertension controlled, history of bronchitis currently compensated , hypothyroidism stable. She presented from same day surgery through the ER after new onset atrial fibrillation that was noticed during the OR time and postop. Patient was in A. fib with RVR for which she went through ER to get CAT scan with angiogram for chest which showed no pulmonary embolism. Patient was later admitted to the hospital for further management and to be evaluated by cardiology. diet counselor shows persistent A. fib with heart rates at rest less than 100 however whenever she is active her heart rate goes up in the 120 to 130 range and she becomes symptomatic with dizziness and lightheadedness along with shallow rapid breathing. Patient otherwise reports no blood in the urine today. Objective - Vital Signs Vital signs: Vital Signs Temp 97.3 F L 06/14/17 08:00 Pulse 101 H 06/14/17 16:00 Resp 20 06/14/17 04:00 BP 128/88 06/14/17 16:00 Pulse Ox 96 06/14/17 16:00 Intake & Output 06/13/17 06/14/17 06/14/17 18:59 06:59 18:59 Intake Total 640 380 Output Total 1300 1400 Balance -660 -1400 380 Weight 110.3 kg Intake: Intake, IV Titration 40 0 Amount Sodium Chloride 0.9% 1, 40 0 000 ml @ 20 mls/hr IV . Q24H [facility] Rx#:[id number] Oral 600 380 Output: Urine 1300 1400 Uretheral (Anton) 100 Other: Voiding Method Toilet # Voids 2 Constitutional: vital signs stable, Not in acute distress, pleasant, conversant Lungs: Clear to auscultation bilaterally, clear to percussion, normal respiratory effort no use of accessory muscles Cardiovascular: irregular rate and rhythm, no murmurs, no gallops, no rubs, no peripheral edema Extremities: No digital cyanosis or clubbing, peripheral pulses palpable and equal over bilateral radial arteries and dorsalis pedis artery, no calf muscle tenderness Psych: Alert, oriented to place, person and time diet counselor was observed, patient was observed walking around the hallways while monitoring her heart rate, patient was getting symptomatic every time she walks long distances with heart rate in the 120s to 130s range. - Labs CBC & Chem 7: 06/14/17 07:48 06/12/17 12:30 Labs: Abnormal Lab Results - Last 24 Hours (Table) 06/14/17 Range/Units 07:48 RBC 3.67 L (3.80-5.40) m/uL Hgb 11.0 L (11.4-16.0) gm/dL Assessment and Plan (1) New onset atrial fibrillation Narrative/Plan: CHADSVASC 2score of 2 (hypertension and female sex) anticoagulation not initiated due to post op status for urologic procedure 2 D echocardiogram unremarkable for valvular abnormalities cardiology input noted, recommendations for anticoagulation once cleared by urology Increase metoprolol dose to 50 mg 3 times a day goal is to have the heartrate addressed below 100 and while ambulating below 120 and asymptomatic Follow up magnesium and potassium levels and replace as needed Status: Acute (2) Hypertension Narrative/Plan: controlled lisinopril Status: Chronic (3) DVT prophylaxis Narrative/Plan: SCDs due to slight urethral bleeding post urologic intervention We'll initiate heparin subcu today Status: Acute (4) Hypothyroidism Narrative/Plan: on levothyroxin free T4 unremarkable Status: Acute (5) Obesity (BMI 30-39.9) Narrative/Plan: counseled regarding weight loss and life style modification Status: Chronic (6) Depression Narrative/Plan: continue home meds Status: Chronic Plan: Patient was not discharged today due to symptomatic A. fib with rapid ventricular response upon ambulation and heartrate in the 130s range Plan is to optimize heartrate with goal of resting heart rate less than 100 and ambulating heartrate was in 120 and asymptomatic Metoprolol dose has been increased to 50 mg 3 times a day Reevaluate in the morning for possible discharge Patient was counseled regarding the importance of initiating anticoagulation once cleared by urology full code status
[2017-06-14] MEDS: TEMAZEPAM 15 MG CAP PO SCH (22:46)
[2017-06-14] MEDS: HEPARIN SODIUM,PORCINE 5,000 UNIT/ML 1 ML VIAL SQ SCH (22:47)
[2017-06-15] MEDS: HYDROmorphone 1 MG/ML 1 ML SYRINGE IVP PRN ×2 (01:26→09:34)
[2017-06-15] MEDS: HEPARIN SODIUM,PORCINE 5,000 UNIT/ML 1 ML VIAL SQ SCH ×2 (01:26→09:33)
[2017-06-15] MEDS: ONDANSETRON 4 MG/2 ML VIAL IVP PRN (06:21)
[2017-06-15] MEDS: LEVOTHYROXINE 100 MCG TAB PO SCH (06:21)
[2017-06-15 07:16] LABS: Anion Gap 8 mmol/L; Blood Urea Nitrogen 16 mg/dL (7-17); Calcium 8.7 mg/dL (8.4-10.2); Carbon Dioxide 31 mmol/L (22-30); Chloride 100 mmol/L (98-107); Glucose 96 mg/dL (74-99); Magnesium 1.6 mg/dL (1.6-2.3); Non-African American GFR(MDRD) >60 (>60 ml/min/1.73 sqM); Potassium 4.5 mmol/L (3.5-5.1); Sodium 139 mmol/L (137-145)
[2017-06-15] MEDS ORDERED: METOPROLOL TARTRATE 50 MG TAB PO SCH (09:00)
[2017-06-15] MEDS: ALPRAZolam 0.25 MG TAB PO PRN (09:12)
[2017-06-15] MEDS: CEPHALEXIN 500 MG CAP PO SCH (09:33)
[2017-06-15] MEDS: LISINOPRIL 10 MG TAB PO SCH (09:33)
[2017-06-15] MEDS: buPROPion XL 300 MG TAB.ER.24H PO SCH (09:33)
[2017-06-15] MEDS: SERTRALINE 100 MG TAB PO SCH (09:33)
[2017-06-15 10:02] VITALS: BP 148/89; PULSE 108; RESP 18; TEMP 97
[2017-06-15 13:46] LABS: Appearance,Urine Clear (Clear); Bilirubin,Urine Negative (Negative); Glucose,Urine (UA) Negative (Negative); Ketones,Urine Negative (Negative); Leukocyte Esterase,Urine Negative (Negative); Nitrite,Urine Negative (Negative); Protein,Urine Negative (Negative); Specific Gravity,Urine 1.004 (1.001-1.035); UA Billing (MACRO vs. MICRO) CHEM; Urobilinogen,Urine <2.0 mg/dL (<2.0)
--- NOTE | 2017-06-15 14:38 | P.PN ---
Subjective Principal diagnosis: Atrial fibrillation This is a 57-year-old female who developed atrial fibrillation following urethral surgery and was admitted to the hospital. She continues to be in atrial flutter in the 90s, heart rate does go up into the 1 teens 120 range with activity. Echocardiogram with Doppler study was performed which revealed a normal left ventricular systolic function. Patient was approved by urology to be started on anticoagulation, which will be initiated by the primary doctor today. From cardiology's perspective, we will increase her dose of beta sadia to 50 mg twice a day. She may be able to be discharged and follow-up with her trials manager out of town where she resides. Objective - Vital Signs Vital signs: Vital Signs Temp 97.0 F L 06/15/17 08:00 Pulse 108 H 06/15/17 08:00 Resp 18 06/15/17 08:00 BP 148/89 06/15/17 08:00 Pulse Ox 96 06/15/17 08:00 Intake & Output 06/14/17 06/15/17 06/15/17 18:59 06:59 18:59 Intake Total 660 Output Total 1200 1200 Balance 660 -1200 -1200 Weight 111.6 kg 111.6 kg Intake: Intake, IV Titration 0 Amount Sodium Chloride 0.9% 1, 0 000 ml @ 20 mls/hr IV . Q24H [facility] Rx#:[id number] Oral 660 Output: Urine 1200 1200 Other: Voiding Method Toilet Toilet # Voids 3 1 - Exam PHYSICAL EXAMINATION: HEENT: [Head is atraumatic, normocephalic. Pupils equal, round. Neck is supple. There is no elevated jugular venous pressure.] HEART EXAMINATION: [Heart S1, S2 normal. No murmur or gallop heard.] CHEST EXAMINATION:[ Lungs are clear to auscultation and precussion. No chest wall tenderness is noted on palpation or with deep breathing.] ABDOMEN: [ Soft, nontender. Bowel sounds are heard. No organomegaly noted]. EXTREMITIES:[ 2+ peripheral pulses with no evidence of peripheral edema and no calf tenderness noted]. NEUROLOGIC [patient is awake, alert and oriented -3.] . - Labs CBC & Chem 7: 06/14/17 07:48 06/15/17 06:02 Labs: Abnormal Lab Results - Last 24 Hours (Table) 06/15/17 Range/Units 06:02 Carbon Dioxide 31 H (22-30) mmol/L Assessment and Plan (1) Paroxysmal a-fib Status: Acute (2) HTN (hypertension) Status: Acute (3) Depression Status: Acute (4) Hypothyroidism Status: Acute (5) Depression Status: Chronic (6) Hypertension Status: Chronic (7) Obesity (BMI 30-39.9) Status: Chronic Plan: From cardiology's perspective, patient may be discharged home today. She's been encouraged to follow-up with her trials manager out of town. DNP note has been reviewed, I agree with a documented findings and plan of care. Patient was seen and examined.
--- NOTE | 2017-06-15 16:07 | P.PN ---
Progress Note - Text The patient underwent elective Lynx retropubic mid urethral sling and cystoscopy on 06/12 at the [facility]. The patient developed atrial fibrillation with induction of the anesthesia and continued in atrial fibrillation immediately postop. She was transferred to [facility] for further evaluation and has been started on beta blockers. Her vaginal packing and urethral catheter removed on 06/13 and her post void residual was reportedly low when checked at that morning. She complains of lower abdominal pressure and urge to void. A postvoid residual was checked this morning and was less than 1 ounce. She continues to void clear urine. Urinalysis this morning was unremarkable and did not suggest an underlying urinary tract infection. At this point the patient can be started on anticoagulants due to her atrial fibrillation. I told her I would like to see her back in follow-up in approximately 2 weeks.
--- NOTE | 2017-06-15 18:23 | P.DS ---
Providers Date of admission: 06/12/17 14:39 Expected date of discharge: 06/15/17 Attending physician: Kristy Santiago DO Consults: 06/12/17 14:40 Consult Physician Urgent Consulting Provider: Jamshid Garcia Consult Reason/Comments: New-onset atrial fibrillation Do you want consulting provider notified?: Yes Primary care physician: Physician Nonstaff - Discharge Diagnosis(es) (1) New onset atrial fibrillation Status: Acute (2) Hypertension Status: Chronic (3) DVT prophylaxis Status: Acute (4) Hypothyroidism Status: Acute (5) Obesity (BMI 30-39.9) Status: Chronic (6) Depression Status: Chronic Hospital Course: 57-year-old female with past medical history of hypertension, hypothyroidism, hepatitis C status post treatment. Patient presented for an elective Lynx retropubic mid urethral sling and cystoscopy on 06/12 , however during induction of anesthesia and postsurgery patient remained in A. fib at times with RVR for which she was admitted to the hospital for further care. CT injury of the chest was performed which was negative for acute pulmonary embolism. Patient was initiated on beta sadia for rate control goalWas to have the heart rate at rest less than 100 and drink activity less than 120. We titrated metoprolol gradually until achieved rate control. Meanwhile urology was following vaginal packing was removed patient was passing clear urine postvoid residual was around 30 mL. Patient was cleared by urology to initiate anticoagulation, patient was started on xarelto 20 mg once a day. 2-D echo of the heart was performed during this stay which showed no valvular abnormalities. Thyroid function test was performed and show suppressed TSH, free T4 at goal. Patient was seen and examined on day of discharge, she reports resolution of symptoms of dizziness, chest pain and trouble breathing during activity. She was tolerating above management very well and was eager to go home. Constitutional: vital signs stable, Not in acute distress, pleasant, conversant Lungs: Clear to auscultation bilaterally, clear to percussion, normal respiratory effort no use of accessory muscles Cardiovascular: irregular rate and rhythm, no murmurs, no gallops, no rubs, no peripheral leg edema Extremities: no calf muscle tenderness Psych: Alert, oriented to place, person and time Patient will be discharged on metoprolol, and xarelto. These recommendations were discussed with cardiology who were in agreement Recommendations as for follow-up with patient's own cardiology to discuss other options for treatment of her A. fib including but not limited to cardioversion. More than 35 minutes were spent discharging this patient, and more than 50% of the time was spent in counseling the patient and family and in coordinating care. Patient Condition at Discharge: Stable Plan - Discharge Summary New Discharge Prescriptions: New Cephalexin [Keflex] 500 mg PO Q8HR #15 cap ALPRAZolam [Xanax] 0.25 mg PO TID PRN #9 tab PRN Reason: Anxiety Cephalexin [Keflex] 500 mg PO TID #15 cap Metoprolol Tartrate [Lopressor] 100 mg PO BID #60 tab Rivaroxaban [Xarelto] 20 mg PO DAILY #30 tab Continue buPROPion HCL [Wellbutrin XL] 300 mg PO DAILY Sertraline [Zoloft] 100 mg PO DAILY Lisinopril [Zestril] 10 mg PO DAILY Levothyroxine Sodium [Synthroid] 100 mcg PO DAILY Omeprazole 20 mg PO BID Discontinued Hydrochlorothiazide 25 mg PO DAILY Discharge Medication List Levothyroxine Sodium [Synthroid] 100 mcg PO DAILY 06/12/17 [History] Lisinopril [Zestril] 10 mg PO DAILY 06/12/17 [History] Omeprazole 20 mg PO BID 06/12/17 [History] Sertraline [Zoloft] 100 mg PO DAILY 06/12/17 [History] buPROPion HCL [Wellbutrin XL] 300 mg PO DAILY 06/12/17 [History] Cephalexin [Keflex] 500 mg PO Q8HR #15 cap 06/13/17 [Rx] ALPRAZolam [Xanax] 0.25 mg PO TID PRN #9 tab 06/15/17 [Rx] Cephalexin [Keflex] 500 mg PO TID #15 cap 06/15/17 [Rx] Metoprolol Tartrate [Lopressor] 100 mg PO BID #60 tab 06/15/17 [Rx] Rivaroxaban [Xarelto] 20 mg PO DAILY #30 tab 06/15/17 [Rx] Follow up Appointment(s)/Referral(s): Jamshid Garcia MD [STAFF PHYSICIAN] - 1 Week Gabriel Piper MD [STAFF PHYSICIAN] - 06/26/17 8:00 am Nonstaff,Physician [Primary Care Provider] - 1-2 days Patient Instructions/Handouts: Rivaroxaban (By mouth), Atrial Fibrillation (GEN ) Activity/Diet/Wound Care/Special Instructions: OK to shower. No lifting, driving, strenuous activity. Discharge Disposition: HOME SELF-CARE
--- NOTE | 2017-07-08 20:10 | CDI ---
Dear Dr Plascencia, Please provide clarificaion regardin. Throughout the record the patient is described as having PERSISTANT and PAROXAMOL Atrial Fibrillation. Please clarify the type of atrial fibrillation that the patient had. An example of the Persistant Afib on your 06/14 progress note and an example of the paroxamal is on A Radha's 06/15 progress note. thanks 2. Throughout the record the patient is described as having HYPOthyroidism. On the 06/14 progress note the patient is described as having HYPERthyroidism. Please clarify the type of thyroid disorder that the patient has. Thanks Please respond to this query by dictating an addendum to your dishcarge summary. Thank you for your assistance. YOLANDA Johnson If you have any questions, please contact Financial Aid, Claudia Hernandez at [phone]. GILBERT
== END 2017-06-15 14:17 | disposition home or self-care (01) ==
LOC: EC 11:59 → INTOOBSV 14:39 → 6SEL 14:39
PROVIDERS: ADMIT Internal Medicine; ATTEND Internal Medicine
DX: I48.1 Persistent atrial fibrillation (principal); I10 Essential (primary) hypertension; E03.9 Hypothyroidism, unspecified; I97.89 Other postprocedural complications and disorders of the circulatory system, not elsewhere classified; F32.9 Major depressive disorder, single episode, unspecified; E66.9 Obesity, unspecified; Z68.37 Body mass index [BMI] 37.0-37.9, adult; J44.9 Chronic obstructive pulmonary disease, unspecified; Z79.899 Other long term (current) drug therapy; F17.200 Nicotine dependence, unspecified, uncomplicated; E86.0 Dehydration; Z86.19 Personal history of other infectious and parasitic diseases; Z82.49 Family history of ischemic heart disease and other diseases of the circulatory system
CPT/HCPCS: 96376; 96361; 96374; 99285; 36415; 93005; 93306; 85379; 84439; 80053; 80048; 84443; 82550 ×2; 82553 ×2; 83735 ×2; 84484 ×2; 85025 ×2; 85610; 85730; 81003; 87086; 71020; 71275; G0378 ×5; Q9967; J2405 ×3; J1170 ×4